=== PATIENT | male | born 1955 | race Hispanic/Latino ===

== ENCOUNTER → 2020-08-22 | Outpatient (CLI) | payer OTHER | LOC: MRI 09:50 | PROVIDERS: ATTEND Family Medicine | DX: S16.1XXD Strain of muscle, fascia and tendon at neck level, subsequent encounter (principal); S39.012D Strain of muscle, fascia and tendon of lower back, subsequent encounter; S43.401D Unspecified sprain of right shoulder joint, subsequent encounter; S43.402D Unspecified sprain of left shoulder joint, subsequent encounter | CPT/HCPCS: 72141; 72148 ==